=== PATIENT | female | born 1985 | race Caucasian/White ===

== ENCOUNTER 2020-10-23 13:14 | Emergency (ER) | payer OTHER ==
--- NOTE | 2020-10-23 14:21 | EDM.PDOC ---
ED HPI GENERAL MEDICAL PROBLEM - General Chief Complaint: Respiratory Problem Stated Complaint: COUGHING CHEST DISCOMFORT Time Seen by Provider: 10/23/20 13:30 Source of Information: Reports: Patient, RN Notes Reviewed History Limitations: Reports: No Limitations - History of Present Illness INITIAL COMMENTS - FREE TEXT/NARRATIVE: 34-year-old female presents emergency department day complaint of cough and congestion, she has been sick for about 2 weeks, progressively gotten worse over the last 3 days she does have yellow sputum production feels tightness in her chest with the cough cough is worse at night does have a lot of sinus pressure she has not had any fevers that she is aware of she is currently on vacation. 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 Psychiatric History: Reports: Anxiety, Depression Endocrine/Metabolic History: Reports: None Hematologic History: Reports: None Immunologic History: Reports: None Oncologic (Cancer) History: Reports: None Dermatologic History: Reports: None - Infectious Disease History Infectious Disease History: Reports: None - Past Surgical History HEENT Surgical History: Reports: None GI Surgical History: Reports: None Social & Family History - Tobacco Use Tobacco Use Status *Q: Never Tobacco User - Caffeine Use Caffeine Use: Reports: Coffee, Soda - Recreational Drug Use Recreational Drug Use: No ED ROS GENERAL - Review of Systems Review Of Systems: See Below Constitutional: Reports: No Symptoms Respiratory: Reports: Shortness of Breath, Cough, Sputum Cardiovascular: Reports: No Symptoms GI/Abdominal: Reports: No Symptoms : Reports: No Symptoms ED EXAM, GENERAL - Physical Exam Exam: See Below Exam Limited By: No Limitations General Appearance: Alert, WD/WN, No Apparent Distress Ears: Normal External Exam, Normal Canal, Hearing Grossly Normal, Normal TMs Nose: Normal Inspection, Normal Mucosa, No Blood Throat/Mouth: Normal Inspection, Normal Lips, Normal Teeth, Normal Gums, Normal Oropharynx, Normal Voice, No Airway Compromise Head: Atraumatic, Normocephalic Neck: Normal Inspection, Supple, Non-Tender, Full Range of Motion Respiratory/Chest: No Respiratory Distress, Lungs Clear, Normal Breath Sounds, No Accessory Muscle Use, Chest Non-Tender Cardiovascular: Regular Rate, Rhythm, No Murmur Course - Vital Signs Last Recorded V/S: Last Vital Signs Temp 98.2 F 10/23/20 13:54 Pulse 108 H 10/23/20 13:54 Resp 16 10/23/20 13:54 BP 145/103 H 10/23/20 13:54 Pulse Ox 98 10/23/20 13:54 Departure - Departure Time of Disposition: 14:22 Disposition: Home, Self-Care 01 Condition: Fair Clinical Impression: Bronchitis - Discharge Information Instructions: Acute Bronchitis, Adult, [id number] Referrals: PCP,None [Primary Care Provider] - Additional Instructions: Take full course probiotics, use the Tessalon Perles during the day, use the Robitussin with codeine at night, use the albuterol inhaler as needed for shortness of breath symptoms, please follow-up with your primary care upon return home if not better call return to the emergency department worsening symptoms Sepsis Event Note (ED) - Evaluation Sepsis Screening Result: No Definite Risk - Focused Exam Vital Signs: Vital Signs Temp Pulse Resp BP Pulse Ox 10/23/20 13:54 98.2 F 108 H 16 145/103 H 98 - Assessment/Plan Plan: Assessment Acuity = acute Site and laterality = bronchitis Etiology = probable underlying bacterial cause Manifestations = cough, sputum production Location of injury = Home Lab values = none Plan Elected to treat empirically a azithromycin for an antibiotic, she will use Tessalon Perles during the day, she will use Robitussin with codeine at night then albuterol inhaler as needed follow-up with her primary care upon return home if not better This note was dictated using [employer] voice recognition software please call with any questions on syntax or grammar.
== END 2020-10-23 14:51 | disposition home or self-care (01) ==
LOC: JP.ED 13:14
DX: J40 Bronchitis, not specified as acute or chronic (principal); I10 Essential (primary) hypertension
CPT/HCPCS: 99283